=== PATIENT | male | born 1930 | race Caucasian/White ===

== ENCOUNTER 2016-10-23 05:29 | Emergency (ER) | payer MEDICARE ==
[2016-10-23] MEDS ORDERED: predniSONE 10 MG TABLET PO ONE (06:10)
[2016-10-23] MEDS ORDERED: IPRATROPIUM/ALBUTEROL 0.5/3 MG 3 ML AMPUL.NEB INHALATION ONE (06:10)
--- NOTE | 2016-10-23 06:49 | ER NURSING DOCUMENTATION ---
Nurse's Notes [facility] Name:Walter Stewart Age:85 yrs Sex:Male :1930 Arrival Date:10/23/2016 Time:05:29 Bed4 Private MD:Physician, No Diagnosis:Pneumonia Viral;Reactive Airway Presentation: 10/23 05:40 Notified ED Physician of Ozzie Orozco notified. lb 05:40 Acuity: MERLIN 3 lb 05:43 Presenting complaint: Patient states: sore throat, hurts to swallow. also feels short lb of breath. Transition of care: patient was not received from another setting of care. 05:43 Method Of Arrival: Walk In Triage Assessment: 05:46 General: Appears uncomfortable, Behavior is appropriate for age, pleasant. Pain: lb Complains of pain in neck Pain does not radiate. Pain currently is 10 out of 10 on a pain scale. EENT:. Respiratory: Airway is patent Trachea midline Respiratory effort is even, unlabored, Respiratory pattern is regular, Breath sounds are clear bilaterally. Reports shortness of breath on exertion Onset: The symptoms/episode began/occurred gradually, the patient has mild shortness of breath. Historical: - Allergies: PENICILLINS; - Home Meds: 1. amlodipine oral 2. Aspirin Oral 3. Simvastatin Oral 4. Morphine Oral 5. Glipizide Oral 6. Metoprolol Tartrate Oral 7. Plavix Oral - PMHx: Hypertension; CAD; Diabetes - NIDDM; chronic back pain; - PSHx: stent; - Tetanus: unknown. - Ebola Screening: : Patient denies exposure to infectious person. Patient denies travel to an Ebola-affected area in the 21 days before illness onset. . - Immunization history: Pneumococcal vaccine is up to date, Flu Vaccine < 1 year. - Social history: Smoking status: Patient states former smoker of tobacco. Patient uses alcohol but reports only rare drinking. Screenin:48 Infectious Disease Risk None. Abuse screen: Denies threats or abuse. Denies injuries lb from another. Nutritional screening: No deficits noted. Assessment: 05:48 See Triage Assessment done by same RN. lb 06:45 Reassessment: 0610 now noted with diffuse wheezing all mtz. has been placed on o2. lb 06:47 Reassessment: 0625 [facility] called for oxygen setup. pt sent home with tank. lb Vital Signs: 05:47 BP 139 / 73; Pulse 71; Resp 18; Temp 98.1(O); Pulse Ox 87% on R/A; Weight 104.33 kg; lb Height 5 ft. 11 in. (180.34 cm); Pain 10/10; 06:46 BP 138 / 73; Pulse 76; Resp 20; Pulse Ox 93% on 2 lpm NC; lb 05:47 Body Mass Index 32.08 (104.33 kg, 180.34 cm) ED Course: 05:30 Patient arrived in ED. ma1 05:30 Physician, Ghazala is Private Physician. ma1 05:40 Sydnee Roque is Primary Nurse. lb 05:41 Triage completed. lb 05:48 Valuables Remains with patient. lb 05:49 Pb Horne MD is Attending Physician. 06:46 Oxygen Oxygen administration via nasal cannula @ 2L/min. lb Administered Medications: 06:01 Drug: predniSONE 40 mg; Route: PO; lb 06:48 Follow up: Response: No adverse reaction lb 06:01 Drug: DuoNeb (Albuterol 2.5 mg, Atrovent 0.5 mg); 3 ml; Route: Nebulizer; lb 06:48 Follow up: Response: Wheezing diminished lb Outcome: 06:15 Discharge ordered by . 06:46 Discharged to home via wheelchair. 06:46 Condition: stable 06:46 Discharge Assessment: Patient awake and alert. Oriented to person, place, time, event, Necessary equipment and/or supplies were obtained and provided to Caregiver. 06:46 Instructed on discharge instructions, follow up and referral plans. use of oxygen tank 06:49 Patient left the ED. lb Signatures: Pb Horne MD MD jm Bollock, Lynda Juanita Nichole [facility]
--- NOTE | 2016-10-23 06:49 | ER PHYSICIAN DOCUMENTATION ---
Physician Documentation [facility] Name:Walter Stewart Age:85 yrs Sex:Male :1930 Arrival Date:10/23/2016 Time:05:29 Bed4 Private MD:Physician, Ghazala ED Pb Cosme Disposition: 10/23/16 06:15 Discharged to Home/Self Care. Impression: Pneumonia Viral, Reactive Airway. - Condition is Good. - Discharge Instructions: REACTIVE AIRWAY DISEASE Adult - BRONCHOSPASM (Adult). - Prescriptions for albuterol sulfate 90 mcg/actuation Inhalation HFA aerosol inhaler - inhale 2 puff by INHALATION route every 4 hours; 1 Inhaler. Prednisone 20 mg Oral Tablet - take 2 tablet by ORAL route once daily for 5 days; 10 tablet. - Medical Reconciliation form form. - Follow up: Private Physician; When: As needed; Reason: Continuance of care. - Problem is new. - Symptoms have improved. HPI: 10/23 06:06 This 85 yrs old Male presents to ER via Walk In with complaints of Shortness jm Of Breath, Difficulty Swallowing. 06:06 The patient has shortness of breath at rest, while working. Onset: The jm symptom(s)/episode began/occurred today. Duration: The symptoms are continuous. Associated signs and symptoms: Pertinent positives: sore throat. The patient has not experienced similar symptoms in the past. Pt worried about strep throat b/c his son had it a week ago. PT got in yesterday and had trouble sleeping, so he came here. Historical: - Allergies: PENICILLINS; - Home Meds: 1. amlodipine oral 2. Aspirin Oral 3. Simvastatin Oral 4. Morphine Oral 5. Glipizide Oral 6. Metoprolol Tartrate Oral 7. Plavix Oral - PMHx: Hypertension; CAD; Diabetes - NIDDM; chronic back pain; - PSHx: stent; - Tetanus: unknown. - Ebola Screening: : Patient denies exposure to infectious person. Patient denies travel to an Ebola-affected area in the 21 days before illness onset. . - Immunization history: Pneumococcal vaccine is up to date, Flu Vaccine < 1 year. - Social history: Smoking status: Patient states former smoker of tobacco. Patient uses alcohol but reports only rare drinking. ROS: 06:00 Constitutional: Positive for fatigue, Negative for fever. jm 06:00 ENT: Positive for hoarseness, sore throat. 06:00 Cardiovascular: Negative for chest pain. 06:00 Respiratory: Positive for cough, shortness of breath. 06:00 Neuro: Negative for dizziness, headache. Exam: 06:00 Constitutional: The patient appears alert, awake. 06:00 ENT: Posterior pharynx: erythema, that is moderate, exudate, is not appreciated, Voice: is hoarse. 06:00 Neck: Trachea: is midline with no obvious abnormalities, Lymph nodes: no appreciated lymphadenopathy. 06:00 Cardiovascular: Rate: normal, Rhythm: regular. 06:00 Respiratory: the patient does not display signs of respiratory distress, Respirations: normal, Breath sounds: wheezing, that is moderate, is scattered. 06:00 Musculoskeletal/extremity: DVT Exam: No signs of deep vein thrombosis. Calves: are non-tender, have equal circumference. 06:00 Skin: Appearance: Color: pink, no rash present. Vital Signs: 05:47 BP 139 / 73; Pulse 71; Resp 18; Temp 98.1(O); Pulse Ox 87% on R/A; Weight 104.33 kg; lb Height 5 ft. 11 in. (180.34 cm); Pain 10/10; 06:46 BP 138 / 73; Pulse 76; Resp 20; Pulse Ox 93% on 2 lpm NC; lb 05:47 Body Mass Index 32.08 (104.33 kg, 180.34 cm) lb MDM: 05:49 Patient medically screened. 12:07 Differential diagnosis: Anemia asthma, Bronchitis pulmonary edema, reactive airway jm disease. Antibiotic administration: Not indicated. Data reviewed: vital signs, nurses notes, lab test result(s), and as a result, I will discharge patient. Counseling: I had a detailed discussion with the patient and/or guardian regarding: the historical points, exam findings, and any diagnostic results supporting the discharge/admit diagnosis, the need for outpatient follow up, with the patient's primary care provider. Medication response: albuterol nebulizer treatment(s) partially relieved the patient's wheezing. ED course: Pt better after duoneb. I feel thi is a bronchitis/viral PNA. Pt given steroids and albuterol. Pt also given 02 for time in EP. . 10/23 05:56 Order name: RAPID STREP SCRN CUL IF NEG EDMS 10/24 06:38 Order name: THROAT FOR BETA STREP EDMS 10/23 05:55 Order name: Pulse Ox Continuous; Complete Time: 06:01 10/23 06:49 Order name: Oxygen; Complete Time: 06:49 lb Dispensed Medications: 06:01 Drug: predniSONE 40 mg; Route: PO; lb 06:48 Follow up: Response: No adverse reaction lb 06:01 Drug: DuoNeb (Albuterol 2.5 mg, Atrovent 0.5 mg); 3 ml; Route: Nebulizer; lb 06:48 Follow up: Response: Wheezing diminished lb Signatures: Pb Horne MD MD jm Bollock, Lynda lb
== END 2016-10-23 06:49 | disposition home or self-care (01) ==
LOC: ER 05:29
DX: J12.9 Viral pneumonia, unspecified (principal); J39.8 Other specified diseases of upper respiratory tract; R53.83 Other fatigue; J02.9 Acute pharyngitis, unspecified; R49.0 Dysphonia; I10 Essential (primary) hypertension; I25.10 Atherosclerotic heart disease of native coronary artery without angina pectoris; E11.9 Type 2 diabetes mellitus without complications; Z95.5 Presence of coronary angioplasty implant and graft; Z79.899 Other long term (current) drug therapy; Z79.02 Long term (current) use of antithrombotics/antiplatelets
CPT/HCPCS: 86403; 87081; 94640; 99284; J7512; J7620